=== PATIENT | male | born 1980 | race Caucasian/White ===

== ENCOUNTER 2018-09-07 09:49 | Emergency (ER) | payer SELFPAY ==
[2018-09-07 10:00] VITALS: BP 160/90
[2018-09-07] MEDS ORDERED: IBUPROFEN 600 MG TABLET PO ONE (10:18)
--- NOTE | 2018-09-07 10:27 | ER Document Report ---
ED Medical Screen (RME) - General Chief Complaint: Knee Injury Stated Complaint: KNEE PAIN Time Seen by Provider: 09/07/18 10:07 Mode of Arrival: Wheelchair Information source: Patient TRAVEL OUTSIDE OF THE [place] IN LAST 30 DAYS: No - HPI Patient complains to provider of: knee pain Onset: Other - This 38-year-old man with a history of multiple joint injuries in the past after a traumatic fall off of a roof presents for evaluation of knee pain in the setting of having twisted his knee last night while at a local watering hole, he had difficulty ambulating thereafter. He was icing it last night while in his room the pain continued to worsen this morning prompting his to force him to come to the emergency room. - Related Data Allergies/Adverse Reactions: No Known Allergies Allergy (Verified 09/07/18 10:12) Past Medical History - General Information source: Patient - Social History Chew tobacco use (# tins/day): No Frequency of alcohol use: Rare Drug Abuse: Marijuana Renal/ Medical History: Denies: Hx Peritoneal Dialysis Past Surgical History: Reports: Hx Orthopedic Surgery - nakia wrist Review of Systems - Review of Systems -: Yes All other systems reviewed and negative Physical Exam - Vital signs Vitals: Temp Pulse Resp BP Pulse Ox 97.8 F 86 16 160/90 H 96 09/07/18 09:59 09/07/18 09:59 09/07/18 09:59 09/07/18 09:59 09/07/18 09:59 - General In distress: Mild - HEENT Head: Normocephalic Eyes: Normal Conjunctiva: Normal Cornea: Normal Extraocular movements intact: Yes Eyelashes: Normal Pupils: PERRL - Respiratory Respiratory status: No respiratory distress Chest status: Nontender Breath sounds: Normal Chest palpation: Normal - Abdominal Inspection: Normal - Extremities General upper extremity: Normal inspection, Nontender, Normal ROM, Normal strength General lower extremity: Other - the lower extremities are symmetric, the pelvis is stable, the right knee is currently in a brace, it demonstrates market tenderness to palpation along the medial aspect of the knee, there is no obvious effusion in the patella does not appear ballotable. There is no appreciable varus or valgus laxity there is marketed pain on valgus strain There is a strong DP pulse and brisk capillary refill in the right foot distal to the level of pain Course - Re-evaluation Re-evalutation: 09/07/18 10:48 38-year-old man with traumatic knee pain. Denies any total deformity of the knee. No obvious laxity in the knee. Patient was offered x-rays and further imaging as well as orthopedics referral he noted that because of his work and insurance status he likely would have difficulty following up with orthopedics however we did discuss this is an important next step. He was offered x-rays which she declined as well as a believe there is little likelihood that there is an acute fracture. This patient likely has a ligamentous injury but not a full knee dislocation. He does have a strong distal pulse. He was given a pair of crutches, encouraged on instructions utilizing a hinged brace or immobilizer as needed for comfort and given return precautions. At the time of discharge she also had a short course of narcotic pain killers given to him for 2-3 days. He was given strict instructions on avoidance of dangerous activities while on these medicines. - Vital Signs Vital signs: Temp Pulse Resp BP Pulse Ox 97.8 F 86 16 160/90 H 96 09/07/18 09:59 09/07/18 09:59 09/07/18 09:59 09/07/18 09:59 09/07/18 09:59 Doctor's Discharge - Discharge Clinical Impression: Knee pain Qualifiers: Chronicity: acute Laterality: right Qualified Code(s): M25.561 - Pain in right knee Knee MCL sprain Qualifiers: Encounter type: initial encounter Laterality: right Qualified Code(s): S83.411A - Sprain of medial collateral ligament of right knee, initial encounter Meniscus, medial, derangement Qualifiers: Laterality: right Qualified Code(s): M23.303 - Other meniscus derangements, unspecified medial meniscus, right knee Condition: Good Disposition: HOME, SELF-CARE Instructions: Use of Crutches ([facility]), Ice & Elevation ([facility]), Suspected Internal Knee Injury ([facility]), Oral Narcotic Medication ([facility]) Additional Instructions: You were seen today in the emergency department for your knee injury. You had an evaluation including a physical exam. I believe that your knee injury may be a meniscus injury. He may have also torn the medial ligament of your knee. Use crutches, use ice, use ibuprofen 4-600 mg every 6 hours as well as Tylenol 1 g every 6 hours. You should follow-up with an orthopedic surgeon as you may need a repair of your knee. Return for worsening pain, fevers chills, inability to feel your leg or other symptoms. Do not take the pain medication that has been prescribed to you before you work or do anything with heavy machinery. Prescriptions: Hydrocodone/Acetaminophen [[place] 5-325 mg Tablet] 1 tab PO Q12H PRN #10 tablet PRN Reason: For Pain Scale 4-5 Forms: Elevated Blood Pressure
== END 2018-09-07 10:23 | disposition home or self-care (01) ==
LOC: ER 09:49
DX: S83.411A Sprain of medial collateral ligament of right knee, initial encounter (principal); M25.561 Pain in right knee; X50.1XXA Overexertion from prolonged static or awkward postures, initial encounter
CPT/HCPCS: 99283

== ENCOUNTER 2018-12-18 00:31 | Emergency (ER) | payer SELFPAY ==
[2018-12-18 01:10] VITALS: BP 147/79
== END 2018-12-18 03:15 | disposition left against medical advice (07) ==
LOC: ER 00:31
DX: Z53.21 Procedure and treatment not carried out due to patient leaving prior to being seen by health care provider (principal)